=== PATIENT | male | born 1980 | race Caucasian/White ===

== ENCOUNTER 2018-12-29 16:36 | Emergency (ER) | payer MEDICAID ==
[2018-12-29 17:42] LABS: ADD MAN DIFF? NO
[2018-12-29 17:46] LABS: BASOPHILS % 0.2 % (0.0-2.0); EOSINOPHILS % 0.2 % (0.0-7.0); HEMATOCRIT 46.3 % (42.0-52.0); LYMPHOCYTES # 1.8 10^3/ul (0.8-2.9); LYMPHOCYTES % 19.7 % (15.0-51.0); MEAN CORPUSCULAR HEMOGLOBIN 29.1 pg (29.0-33.0); MEAN CORPUSCULAR HGB CONC 34.6 g/dl (32.0-37.0); MEAN CORPUSCULAR VOLUME 84.2 fl (82.0-101.0); MEAN PLATELET VOLUME 8.7 fl (7.4-10.4); MONOCYTE # 0.7 10^3/ul (0.3-0.9); MONOCYTES % 7.3 % (0.0-11.0); NEUTROPHIL # 6.7 10^3/ul (1.6-7.5); NEUTROPHILS % 72.4 % (39.0-77.0); PLATELET COUNT 271 10^3/UL (140-415); RED CELL DISTRIBUTION WIDTH 11.9 % (11.5-14.5)
[2018-12-29 17:46] LABS: WHITE BLOOD COUNT 9.2 10^3/ul (4.8-10.8)
[2018-12-29 18:06] LABS: INR 0.95; PROTIME 12.8 Sec (11.9-14.9)
[2018-12-29 18:07] LABS: PARTIAL THROMBOPLASTIN TIME 28.8 Sec (23.0-35.0)
[2018-12-29 18:16] LABS: ALANINE AMINOTRANSFERASE 257 IU/L (13-69); ALBUMIN 4.7 g/dl (3.3-4.9); ALBUMIN/GLOBULIN RATIO 1.27; ALKALINE PHOSPHATASE 76 IU/L (42-121); AMYLASE 86 U/L (11-123); ANION GAP 11 (5-13); ASPARTATE AMINO TRANSFERASE 75 IU/L (15-46); BILIRUBIN,INDIRECT 0.3 mg/dl (0-1.1); BILIRUBIN,TOTAL 0.3 mg/dl (0.2-1.3); BLOOD UREA NITROGEN 20 mg/dl (7-20); CALCIUM 9.7 mg/dl (8.4-10.2); CARBON DIOXIDE 28 mmol/L (21-31); CHLORIDE 105 mmol/L (97-110); CREATININE 1.27 mg/dl (0.61-1.24); Estimated GFR > 60 mL/min (>60); GLUCOSE 112 mg/dl (70-220); LIPASE 88 U/L (23-300); SODIUM 144 mmol/L (135-144); TOTAL PROTEIN 8.4 g/dl (6.1-8.1)
[2018-12-29] MEDS: SOD CHLORIDE 0.9% 1,000 ML IV (18:18)
[2018-12-29] MEDS: morphine 4 MG/ML VIAL IV (18:19)
[2018-12-29] MEDS: FAMOTIDINE 20 MG INJ IV (18:19)
[2018-12-29] MEDS: ONDANSETRON 4 MG INJ IV (18:19)
[2018-12-29 18:27] LABS: TROPONIN-I < 0.012 ng/ml (0.000-0.120)
[2018-12-29] MEDS: SOD CHLORIDE 0.9% 100 ML (19:18)
[2018-12-29] MEDS: IOHEXOL 300MG/ML 150 ML BTL (19:18)
== END 2018-12-29 20:29 | disposition home or self-care (01) ==
LOC: E/R 16:36
DX: R10.13 Epigastric pain (principal)
CPT/HCPCS: 71045; 74177; 80053; 82150; 83690; 84484; 85025; 85610; 85730; 93005; 96374; 96375; 99285-25

== ENCOUNTER 2019-01-02 23:56 | Emergency (ER) | payer MEDICAID ==
[2019-01-03] MEDS: KETOROLAC 30 MG INJ IM (01:16)
[2019-01-03] MEDS: ONDANSETRON (ODT) 4 MG TAB ODT (01:16)
[2019-01-03] MEDS: LIDOCAINE/MYLANTA 40 ML BTL PO (01:16)
[2019-01-03] MEDS: LORAZEPAM 1 MG TAB PO (01:22)
== END 2019-01-03 02:00 | disposition home or self-care (01) ==
LOC: FTE 23:56
DX: R42 Dizziness and giddiness (principal); R11.0 Nausea; R07.89 Other chest pain; R05 Cough; M54.6 Pain in thoracic spine
CPT/HCPCS: 93005; 96372; 99284-25